=== PATIENT | male | born 1990 | race Caucasian/White ===

== ENCOUNTER → 2020-10-01 14:02 | Outpatient (BNVA) | payer BC, SELFPAY | PROVIDERS: PCP Nurse Practitioner; Visit Provider Surgery | DX: K21.9 Gastro-esophageal reflux disease without esophagitis (principal) | CPT/HCPCS: 87635 ==

== ENCOUNTER 2022-12-23 10:11 | Emergency (ER) | payer BC, MEDICAID, SELFPAY ==
[2022-12-23 10:12] VITALS: BP 178/132; PULSE 70; RESP 16; TEMP 36.3; O2SAT 97
--- NOTE | 2022-12-23 10:25 | XRR_ITS ---
PROCEDURE INFORMATION: Exam: XR Chest Exam date and time: 12/23/2022 10:31 AM Age: 32 years old Clinical indication: Sternal or substernal pain; Additional info: Cp TECHNIQUE: Imaging protocol: Radiologic exam of the chest. Views: 1 view. COMPARISON: No relevant prior studies available. FINDINGS: Lungs: No focal airspace disease. Pleural spaces: Unremarkable. No pleural effusion. No pneumothorax. Heart/Mediastinum: Cardiomediastinal silhouette is within normal limits. Bones/joints: Unremarkable. XR/XR chest 1V portable [id number] IMPRESSION: No acute cardiopulmonary abnormality.
--- NOTE | 2022-12-23 10:25 | ECG_ITS ---
[facility] Test Date: 2022-12-23 Pat Name: Hayden Guzman Department: Room: Gender: Male Foster Parent: : 1990 Requested By: Marshall Stevens Order Number: [id number] Real MD: Brayden Mcclure M.D. Measurements Intervals [place] Rate: 74 P: 16 WA: 118 QRS: 50 QRSD: 95 T: 24 QT: 369 QTc: 410 Interpretive Statements SINUS RHYTHM WITH SINUS ARRHYTHMIA WITH SHORT WA INTERVAL INCOMPLETE RIGHT BUNDLE BRANCH BLOCK [90+ ms QRS DURATION, TERMINAL R IN V1/V2, 40+ ms S IN I/aVL/V4/V5/V6] INTERPRETATION BASED ON A DEFAULT AGE OF 40 YEARS No previous ECG available for comparison Electronically Signed On 12-23-2022 16:08:00 ELECTRONIC MAINTENANCE SUPERVISOR by Brayden Mcclure M.D. [id number] lisha
[2022-12-23 10:44] VITALS: BP 148/65; PULSE 69; RESP 14; O2SAT 96
--- NOTE | 2022-12-23 10:46 | ED_ITS ---
HPI - Chest Pain General: Chief Complaint: Chest Pain Stated Complaint: Chest Pain Time Seen by Provider: 12/23/22 10:23 History of Present Illness: Patient is a 32-year-old male comes to the ED with chest pain. Episode of chest pain started earlier this morning. He was leaning forward and setting up his coffee in [employer] machine and started feeling an intense sharp pain in the middle of his chest. He described it as feeling like somebody is ripping your chest apart. Pain lasted for 20 to 30 minutes. He states he has had pain like this before but this was the most intense and long- lasting episode he is ever had. Any movement with arms forward causes worsening pain. If he raised his arms above his head it would relieve pain. He also reports during that time his chest felt really sore to the touch. Here in the ED he says his chest pain is very mild and describes it as a soreness in the middle of his chest. Denies any shortness of breath, vomiting, diaphoresis or p alpitations during episode. Denies any cardiac history. Patient does have a history of GERD but states this pain felt nothing like his past GERD flareups. Associated symptoms: Deny abdominal pain, dyspnea, fever(s), nausea, palpitations or vomiting Review of Systems Const: Denies: fever(s), chills or fatigue Eyes: Denies: change in vision or eye discomfort ENMT: Denies: throat pain, odynophagia, nasal discharge or nasal congestion Card: Reports: chest pain; Denies: palpitations, edema, swelling of feet/ankles, dyspnea on exertion or orthopnea Resp: Denies: dyspnea, productive cough or non-productive cough GI: Denies: abdominal pain, nausea, vomiting, diarrhea, constipation or hematochezia : Denies: flank pain, difficulty urinating, dysuria or hematuria Musc: Denies: neck pain, back pain or extremity swelling Skin/Breast: Denies: rash or new lesions Neuro: Denies: headache(s), numbness in extremities or weakness in extremities PFS ED PFSH: Medical History GERD (gastroesophageal reflux disease) Family History Denies family history of Anesthesia complication Bleeding disorder Social History Smoking and tobacco status: never smoked Physical Exam Const: COMMON NORMALS: no acute distress, patient oriented x3, healthy appearing and alert GENERAL APPEARANCE: cooperative and comfortable HENMT: COMMON NORMALS: normocephalic HEAD & SCALP: normocephalic MOUTH: Normal oral and palatal mucosa present THROAT: posterior oropharynx normal and uvula midline Neck/C-Spine: COMMON NORMALS: supple GENERAL: Yes normal visual inspection Resp: COMMON NORMALS: normal respiratory effort, No retractions, No use of accessory muscles and clear to auscultation bilaterally AUSCULTATION: clear to auscultation bilaterally Cardio: COMMON NORMALS: regular rate, regular rhythm, S1 normal heart sound present, S2 normal heart sound present, No gallops present (Cardio), No clicks present (Cardio), No murmurs present (Cardio) and Peripheral pulses 2+ thr oughout RATE: regular rate RHYTHM: regular rhythm HEART SOUNDS: S1 normal heart sound present and S2 normal heart sound present PERIPHERAL PULSES: Peripheral pulses 2+ throughout GI: COMMON NORMALS: Normal to inspection, nondistended, normoactive bowel sounds present, Soft to palpation, non-tender and no masses PALPATION: Yes Soft to palpation : COMMON NORMALS: Yes no CVA tenderness BLADDER/KIDNEY EXAM: Yes no CVA tenderness Back/Pelvis: COMMON NORMALS: no CVA tenderness Extremity: COMMON NORMALS: normal to inspection Neuro: COMMON NORMALS: patient oriented x3 SENSORIUM/ORIENTATION: Yes alert GAIT: Yes Normal gait present Skin: GENERAL SKIN EXAM: dry skin Course Vital Signs: Vital signs: Vital Signs Temperature 97.3 F L 12/23/22 10:12 Pulse Rate 69 12/23/22 10:44 Respiratory Rate 14 12/23/22 10:44 Blood Pressure 148/65 12/23/22 10:44 Pulse Oximetry 96 12/23/22 10:44 Oxygen Delivery Me thod 12/23/22 10:44 MDM - Chest Pain Medical Decision Making Patient is a 32-year-old male comes to the ED with chest pain. Episode of chest pain started earlier this morning. He was leaning forward and setting up his coffee in [employer] machine and started feeling an intense sharp pain in the middle of his chest. He described it as feeling like somebody is ripping your chest apart. Pain lasted for 20 to 30 minutes. He states he has had pain like this before but this was the most intense and long-lasting episode he is ever had. Any movement with arms forward causes worsening pain. If he raised his arms above his head it would relieve pain. He also reports during that time his chest felt really sore to the touch. Here in the ED he says his chest pain is very mild and describes it as a soreness in the middle of his chest. Denies any shortness of breath, vomiting, diaphoresis or palpitations during episode. Vitals are stable. Exam of patient is benign and patient appears healthy, nontoxic and in no acute distress or pain. CBC and CMP are unremarkable. Troponin negative. Sinus rhythm, 74 bpm, no ST segment elevation or depression seen. Chest x-ray shows no acute findings. Patient was stable for discharge home and diagnosed with atypical chest pain. He was told to follow-up with his PCP within the next week for reevaluation. Return to ED precautions given. Patient understood and agreed with plan. Lab Data I reviewed the patient's lab results. 12/23/22 10:28 12/23/22 10:28 Radiology Impressions Chest X-Ray 12/23/22 10:25 IMPRESSION: No acute cardiopulmonary abnormality. Laboratory Results WBC 5.8 10^3/uL (4.0-10.0) 12/23/22 10:28 RBC 5.06 10^6/uL (4.1-5.3) 12/23/22 10:28 Hgb 15.1 g/dL (11.7-16.6) 12/23/22 10:28 Hct 44.1 % (42.0-52.0) 12/23/22 10:28 MCV 87.2 fl (80-94) 12/23/22 10:28 MCH 29.8 pg (28.0-34.0) 12/23/22 10:28 MCHC 34.2 g/dL (30.0-36.0) 12/23/22 10:28 RDW 12.6 % (12.1-15.1) 12/23/22 10:28 Plt Count 233 10^3/cmm (130-400) 12/23/22 10:28 MPV 9.9 fL (7.4-10.4) 12/23/22 10:28 Neut % (Auto) 55.3 % 12/23/22 10:28 Lymph % (Auto) 30.9 % 12/23/22 10:28 [place] % (Auto) 9.3 % 12/23/22 10:28 Eos % (Auto) 3.8 % 12/23/22 10:28 Baso % (Auto) 0.5 % 12/23/22 10:28 Neut # (Auto) 3.21 10^3/uL (1.8-7.7) 12/23/22 10:28 Lymph # (Auto) 1.8 10^3/uL (0.8-4.8) 12/23/22 10:28 [place] # (Auto) 0.5 10^3/uL (0.2-0.9) 12/23/22 10:28 Eos # (Auto) 0.2 10^3/uL (0.0-0.8) 12/23/22 10:28 Baso # (Auto) 0.0 10^3/uL (0.0-0.1) 12/23/22 10:28 Nucleated RBC % (auto) 0 % 12/23/22 10:28 Nucleated RBCs # 0.0 /100WBC 12/23/22 10:28 Sodium 137 mmol/L (136-145) 12/23/22 10:28 Potassium 4.3 mmol/L (3.5-5.1) 12/23/22 10:28 Chloride 103 mmol/L (98-107) 12/23/22 10:28 Carbon Dioxide 23 mmol/L (22-29) 12/23/22 10:28 Anion Gap 15.3 (5-19) 12/23/22 10:28 BUN 13 mg/dL (6-20) 12/23/22 10:28 Creatinine 1.0 mg/dL (0.7-1.2) 12/23/22 10:28 GFR Calculation 86.1 mL/min (90-130) L 12/23/22 10:28 Glucose 115 mg/dL (65-115) 12/23/22 10:28 Calculated Osmolality 285 mOsm/kg (285-295) 12/23/22 10:28 Calcium 9.4 mg/dL (8.5-10.5) 12/23/22 10:28 Total Bilirubin 0.7 mg/dL (0.15-1.2) 12/23/22 10:28 AST 24 U/L (0-40) 12/23/22 10:28 ALT 39 U/L (0-41) 12/23/22 10:28 Alkaline Phosphatase 100 U/L (40-130) 12/23/22 10:28 Troponin T Baseline 6 ng/L (0-15) 12/23/22 10:28 Total Protein 7.1 g/dL (6.6-8.7) 12/23/22 10:28 Albumin 4.6 g/dL (3.5-5.2) 12/23/22 10:28 Globulin 2.5 g/dL (1.3-4.6) 12/23/22 10:28 EKG Data EKG 1: EKG interpretation date: 12/23/22 Interpretation: Sinus rhythm, 74 bpm, no ST segment elevation or depression seen. Discharge Plan Discharge Patient Disposition: Home Clinical Impression: Atypical chest pain Condition: Stable Prescriptions: No Action No Known Home Medications Discharge Orders: Discharge ED (Routine); Ordered 12/23/22 Ordered By: Marshall Stevnes Referrals: Gris Mitchell APN [Primary Care Provider] - Discharge Diet: Regular Discharge Activity: Increase activity as tolerated Patient Instructions: Chest Pain - Noncardiac, Chest Pain - Chest Wall Activity Restrictions/Additional Instructions: Follow-up with medical provider as directed within the next week for reevaluation. Take [id number] ibuprofen or Tylenol for any pain or inf lammation. Return to the ER or your medical provider if condition worsens. Please read and understand discharge instructions. Thank you for choosing [facility] for your healthcare needs today. Please realize this is an emergency room and that we are providing you with a medical screening exam and this may not be complete and all inclusive of all the testing and or work up that you may need to determine your ailment or severity of your illness. It is very important that you follow up as instructed or that you return to the Emergency Department should you have concerns or if your cond ition changes or worsens in any way. Coding Level of Care Code ED Swimming Pool Cleaner for Burt Harris
[2022-12-23 10:55] LABS: Basophils % 0.5 %; Eosinophils # 0.2 10^3/uL (0.0-0.8); Eosinophils % 3.8 %; Hematocrit 44.1 % (42.0-52.0); Hemoglobin 15.1 g/dL (11.7-16.6); Lymphocytes # 1.8 10^3/uL (0.8-4.8); Lymphocytes % 30.9 %; Mean Corpuscular HGB Conc 34.2 g/dL (30.0-36.0); Mean Corpuscular Hemoglobin 29.8 pg (28.0-34.0); Mean Corpuscular Volume 87.2 fl (80-94); Mean Platelet Volume 9.9 fL (7.4-10.4); Monocytes # 0.5 10^3/uL (0.2-0.9); Monocytes % 9.3 %; Neutrophils # 3.21 10^3/uL (1.8-7.7); Neutrophils % 55.3 %; Nucleated Red Blood Cells % 0 %; Platelet Count 233 10^3/cmm (130-400); Red Blood Count 5.06 10^6/uL (4.1-5.3); Red Cell Distribution Width 12.6 % (12.1-15.1); White Blood Count 5.8 10^3/uL (4.0-10.0)
[2022-12-23 11:07] LABS: Troponin(5th) Baseline 6 ng/L (0-15)
[2022-12-23 11:10] LABS: Alanine Aminotransferase 39 U/L (0-41); Albumin Level 4.6 g/dL (3.5-5.2); Alkaline Phosphatase 100 U/L (40-130); Aspartate Amino Transferase 24 U/L (0-40); Blood Urea Nitrogen 13 mg/dL (6-20); Calcium 9.4 mg/dL (8.5-10.5); Carbon Dioxide 23 mmol/L (22-29); Chloride 103 mmol/L (98-107); Globulin 2.5 g/dL (1.3-4.6); Glomerular Filtration Rate 86.1 mL/min (90-130); Glucose 115 mg/dL (65-115); Osmolality Calculated 285 mOsm/kg (285-295); Sodium 137 mmol/L (136-145); Total Bilirubin 0.7 mg/dL (0.15-1.2); Total Protein 7.1 g/dL (6.6-8.7)
[2022-12-23 11:16] LABS: Anion Gap 15.3 (5-19); Potassium 4.3 mmol/L (3.5-5.1)
== END 2022-12-23 11:41 | disposition home or self-care (01) ==
PROVIDERS: Emergency Provider Physician Assistant; PCP Nurse Practitioner
DX: R07.89 Other chest pain (principal)
CPT/HCPCS: 71045; 80053; 84484; 85025; 93005; 99285

== ENCOUNTER → 2023-04-23 08:39 | Outpatient (BNVA) | payer BC, MEDICAID, SELFPAY | PROVIDERS: Referring Provider Nurse Practitioner Family; Visit Provider Student in an Organized Health Care Education/Training Program | DX: M25.512 Pain in left shoulder (principal) | CPT/HCPCS: 73030 ==